=== PATIENT | male | born 2000 | race Two or more races ===

== ENCOUNTER 2021-09-29 16:04 | Emergency (ER) | payer OTHER ==
[2021-09-29] MEDS ORDERED: Dexamethasone 10 MG/ML VIAL ONE (17:33)
== END 2021-09-29 17:42 | disposition home or self-care (01) ==
LOC: CSHERS 16:04
DX: R13.10 Dysphagia, unspecified (principal); J02.9 Acute pharyngitis, unspecified; R51.9 Headache, unspecified; R09.81 Nasal congestion; F17.290 Nicotine dependence, other tobacco product, uncomplicated; Z86.16 Personal history of COVID-19; Z79.899 Other long term (current) drug therapy
CPT/HCPCS: 87081; 87430; 99283; J1100